=== PATIENT | male | born 1960 | race Caucasian/White ===

== ENCOUNTER → 2018-01-13 08:34 | Outpatient (CLI) | payer MEDICARE, SELFPAY ==
--- NOTE | 2018-01-13 08:45 | RAD_ITS ---
STUDY: ESOPHAGRAM DOUBLE AIR BARIUM CONTRAST STUDY REASON FOR EXAM: Male, 57 years old. Vomiting and upper chest pain with sensation of food stuck in chest. Pills stuck in throat. Acid reflux. Sore throat. RADIATION DOSAGE (If Supplied By Facility): 286.02 mGy FLUOROSCOPY TIME (if supplied): (3:03) minutes/seconds TECHNIQUE: Bowel air-barium contrast study was initiated with small swallow of thick barium which the patient tolerated well and showed no obstruction. Patient then ingested water and insufflation crystals but then vomited which limited the study. Patient could only handle small amount of thick barium in the upright position and small amount of thin barium via straw in the ALLAN prone position also limiting study. Lateral upright cine imaging was performed with thin barium and separately with barium 18 mm tablet. COMPARISON: None available. FINDINGS: Suboptimal study as patient vomited after ingesting insufflation crystals and water, best imaging possible under the circumstances. No crystal aspiration below the vocal cords noted. No complete obstruction or extravasation of contrast seen. No marked narrowing of the distal esophagus is seen. No mucosal lesion such as ulcer or polyp seen. No finding of extrinsic constricting annular lesion. However, severe esophageal dysmotility is noted and hazy ill-defined distal esophageal lateral greater than medial margins suggests esophagitis. Also with barium tablet cine swallowing, the barium tablet was seen in the upper thoracic proximal esophagus for approximately 1 minute before passing into the stomach. Anterior approach metal plate/screws transfix lower cervical spine. RAD/Esophagus Only IMPRESSION: Fairly severe esophageal dysmotility without tertiary waves. Mild distal esophagitis suggested. Clinical correlation recommended. Limited study due to vomiting initially with the insufflation crystals and water ingested by patient. No significant stricture, obstruction, diverticulum, extravasation of barium or extrinsic constricting annular lesion identified with above limitation. No mucosal lesion such as ulcer or polyp identified with above limitations. Barium 18 mm tablet delayed passage was seen in the upper thoracic proximal esophagus indicating esophageal dysmotility corresponding to some of the patient's symptoms. Electronically Signed: Amol Moran, at 14:44 EDT Tel , Service support ,
== END ==
PROVIDERS: Family Provider Family Medicine; PCP Family Medicine; Visit Provider Otolaryngology
DX: R13.10 Dysphagia, unspecified (principal)
CPT/HCPCS: 74220

== ENCOUNTER → 2018-01-18 13:20 | Outpatient (CLI) | payer MEDICARE, SELFPAY ==
--- NOTE | 2018-01-18 13:45 | SP.MBSS_ITS ---
PRIMARY / SECONDARY DIAGNOSIS: dysphagia (R13.10) REFERRING PHYSICIAN: Dr. Beto Gastelum MD CURRENT DIET: regular textures, thin liquids DENTITION: WFL MENTAL STATUS: WNL RESPIRATORY STATUS: O2 via room air PREVIOUS MODIFIED BARIUM SWALLOW STUDY: none REASON FOR REFERRAL: Patient is a 57 year old male referred for a modified barium swallow (MBS) study to objectively assess the Patients oropharyngeal swallow function under fluoroscopy secondary to reported difficulty swallowing that has persisted for approximately 4 years, with recent severe esophageal dysmotility identified under fluoroscopy prior to episode of emesis. Patient details intermittent coughing during PO intake, with the Patient presenting with harsh, dysphonic vocal quality with intermittent diplophonia. Patient reports poor vocal quality has persisted following 2013 anterior cervical fusion, with slight gradual increase. Patient reports biopsy of non-specified vocal fold growth planned for 01/19/2018. ADDITIONAL OBJECTIVE ASSESSMENT RESULTS: 01/13/2018 barium swallow study revealed fairly severe esophageal dysmotility without tertiary waves; mild distal esophagitis suggested; 18 mm tablet delayed passage was seen in the upper thoracic proximal esophagus indicating esophageal dysmotility corresponding to some of the patient's symptoms; study limited due to due to vomiting initially with the insufflation crystals and water ingested. MEDICAL HISTORY: Status post anterior cervical fusion, lymphoma status post surgical removal, gastroesophageal reflux disease, arthritis, hypertension, hyperlipidemia, chronic cough, chronic shortness of breath, daytime fatigue, alcohol abuse, prior smoker. STUDY FINDINGS: Patient participated in a Modified Barium Swallow (MBS) study on 01/18/2018. Dr. Alegria was the radiologist present for this evaluation. This study was recorded in the lateral view and images were sent to PACs for storage. The following consistencies were presented to this patient for analysis of oropharyngeal swallow function: thin liquids, nectar thickened liquids, pudding , and a regular textured, Adalgisa Doone cookie. Results of the MBS are as follows: PENETRATION / ASPIRATION SCALE (MARIA): 1 = does not enter airway 2 = enters airway/above vocal folds/ejected 3 = enters airway/above vocal folds/not ejected 4 = enters airway/contacts vocal folds/ejected 5 = enters airway/contacts vocal folds/not ejected 6 = enters airway/below vocal folds/ejected 7 = enters airway/below vocal folds/not ejected despite effort 8 = enters airway/below vocal folds/no effort VIDEOFLOROSCOPIC SCALE SCORE (MARIA): Grade I = aspiration of material that has penetrated into the laryngeal vestibule, intact cough reflex Grade II = aspiration < 10 % of the bolus, intact cough reflex Grade III = aspiration of < 10 % of the bolus, reduced cough reflex or aspiration of > 10 % of the bolus, intact cough reflex Grade IV = aspiration of > 10 % of the bolus, reduced cough reflex PENETRATION / ASPIRATION SCALE (SCORE) WITH VIDEOFLOROSCOPIC SCALE SCORE: Thin liquid - 5 mL tsp.: 6 - Grade III Thin liquids via cup (single sip): 3 Thin liquids via cup (single sip): 3 Thin liquids via cup (single sip): 1 Thin liquids via cup (sequential swallows): 3 Thin liquids via straw (single sip): 3 Thin liquids via straw (sequential swallows): 3 Thin liquids via cup (chin tuck): 1 Thin liquids via cup (chin tuck): 1 Thin liquids via cup (chin tuck): 1 Lamoni thickened liquids via cup (single sip): 1 Lamoni thickened liquids via cup (single sip): 1 Lamoni thickened liquids via cup (single sip): 1 Pudding via spoon: 1 Regular textured cookie: 1 Thin liquids via cup (chin tuck): 1 IMPRESSION: DIAGNOSIS: mild to moderate pharyngeal dysphagia (R13.13) with abnormal esophageal findings ORAL PHASE CHARACTERIZED BY: LABIAL SEAL: no labial escape TONGUE CONTROL DURING BOLUS MANIPULATION: cohesive bolus between tongue to palatal seal BOLUS PREPARATION / MASTICATION: timely and efficient chewing and mashing BOLUS TRANSPORT / LINGUAL MOTION: brisk tongue motion ORAL RESIDUE: trace residue lining oral structures PHARYNGEAL PHASE CHARACTERIZED BY: INITIATION OF PHARYNGEAL SWALLOW: bolus head at posterior laryngeal surface of epiglottis at first hyoid excursion SOFT PALATE ELEVATION: no bolus between soft palate and pharyngeal wall LARYNGEAL ELEVATION: partial superior movement of thyroid cartilage/partial approximation of arytenoids cartilage to epiglottic petiole ANTERIOR HYOID EXCURSION: intermittent partial anterior movement EPIGLOTTIC MOVEMENT: complete epiglottic inversion LARYNGEAL VESTIBULE CLOSURE AT HEIGHT OF SWALLOW: incomplete laryngeal vestibule closure with narrow column of air/contrast in laryngeal vestibule PHARYNGEAL STRIPPING WAVE: pharyngeal stripping wave present / diminished PHARYNGOESOPHAGEAL SEGMENT OPENING: partial distension and partial duration; partial obstruction of flow TONGUE BASE RETRACTION: trace column of contrast between tongue base and posterior pharyngeal wall PHARYNGEAL RESIDUE: collection of residue within or on pharyngeal structures ESOPHAGEAL PHASE CHARACTERIZED BY: ESOPHAGEAL BOLUS CLEARANCE IN THE UPRIGHT POSITION: brief esophageal retention of solid textures upper thoracic proximal esophagus with remainder cleared with liquid wash; prior severe esophageal dysmotility appreciated under fluoroscopy. EFFECTS OF TREATMENT STRATEGIES ATTEMPTED: Chin tuck posture = effective Cough and reswallow = effective Liquid chaser = moderately effective DIET TEXTURE RECOMMENDATIONS: Will recommend a regular textured, thin liquid diet. COMPENSATORY STRATEGIES RECOMMENDED: Chin tuck with thin liquids, reduced bolus volume, reduced rate of intake, liquid chaser, seated upright at 90 degrees during PO intake, remain upright for 30-60 minutes post meal (GERD precaution), medications with purees (crushed if able) INTERPRETATION OF RESULTS: Patient presents with mild to moderate pharyngeal dysphagia (R13.13) likely associated with previous anterior cervical fusion with abnormal esophageal findings similar to (albeit less intense) prior findings under fluoroscopy. Pharyngeal phase marked by impaired pharyngeal swallow onset timing resulting in suboptimal bolus location upon swallow onset with pre-prandial penetration and brief drop below the vocal folds without sensation (silent aspiration by definition) occurring during the initial trial (trial very atypical in comparison to preceding trials); reduced closure of the airway during deglutition attributed to reduced laryngeal elevation resulting in poor laryngeal vestibule closure / pressure and insufficient laryngeal vestibule pressure generated to expel penetrated material; mild pharyngeal dysmotility primarily attributed to reduced posterior pharyngeal stripping wave action pharyngeal retention within the valleculae. Esophageal phase marked by brief esophageal retention of solid textures upper thoracic proximal esophagus with remainder cleared with liquid wash; prior severe esophageal dysmotility appreciated under fluoroscopy. All deficits ameliorated with execution of the chin tuck posture with bolus volume adjustments. Sufficient volitional cough generated to expel penetrated material. Cervical fusion plate present extending from C5 to C7. RECOMMENDATIONS: Patient able to comprehend and express recommended intake precautions detailed above with sufficient detail to suggest high likelihood of compliance. Provided brief overview of signs and symptoms of aspiration, with recommendations for the Patient to further discuss symptoms with PCP. No further skilled speech- language services warranted at this time targeting dysphagia. ADDITIONAL COMMENTS/RECOMMENDATIONS: Results and recommendations were discussed with the Patient immediately following MBS completion, with the Patient verbalizing understanding and agreement with all recommendations and education provided. IMAGE COUNT: [id number] G-CODES: SWALLOWING G8996 Current Status: CI SWALLOWING G8997 Goal Status: CI SWALLOWING G8998 Discharge Status: CI Chi Friedman M.A., CCC-EMPLOYMENT ADVISOR [facility] Speech-Language Pathology Department [email or web address]
== END ==
PROVIDERS: Family Provider Family Medicine; PCP Family Medicine; Visit Provider Otolaryngology
DX: R13.10 Dysphagia, unspecified (principal)
CPT/HCPCS: 74230; 92611

== ENCOUNTER 2018-01-19 11:44 | Day surgery (SDC) | payer MEDICARE, SELFPAY ==
[2018-01-14 16:19] LABS: Hematocrit 42.3 % (40-54); Hemoglobin 14.3 g/dl (13.0-16.5); Mean Corp Hgb Conc 33.8 g/gl (32-36); Mean Corpuscular Hgb 30.6 pg (27.0-32.0); Mean Corpuscular Volume 90.6 fL (80-94); Mean Platelet Vol. 10.6 fl (6.2-12.0); Platelet Count 287 K/mm3 (150-450); RBC Distribution Width CV 14.3 % (11.6-14.6); RBC Distribution Width SD 47.2 fl (35.1-43.9); Red Blood Count 4.67 M/mm3 (4.6-6.2); White Blood Count 12.9 K/mm3 (4.4-11.0)
[2018-01-14 16:20] LABS: Scan Indicated on CBC? Y/N NO
[2018-01-14 16:29] LABS: BUN 18 mg/dL (7-18); EST Glomerular Filtration Rate 60 mL/min (>60); Glucose 96 mg/dL (74-106)
[2018-01-14 16:30] LABS: Anion Gap 5 (5-15); BUN/Creat Ratio 13.8 RATIO (10-20); Calcium,Total 8.8 mg/dL (8.5-10.1); Chloride 108 mmol/L (98-107); Est Glom Filt Rate - Afr Amer 73 mL/min (>60); Potassium 4.1 mmol/L (3.5-5.1); Sodium Level 141 mmol/L (136-145)
--- NOTE | 2018-01-19 | IMM_PTH ---
PATIENT: NGHIA CRABTREE [place] [facility] [place] [facility] [id number] AGE/SX: 57/M ROOM: RE01/19/[address]: Dr. Beto Gastelum MD : 1960 BED: DIS: 01/19/2018 SPEC #: [id number] RECD: 01/21/18 12:48 STATUS: KITTY RESangita #: [id number] SOLITARIO: 01/19/18 00:[address]: Beto Gastelum DEPT: IMMUNOHISTOCHEMISTRY RECD BY: Saadia Vargas ENTERED: 01/21/18 12:49 SP TYPE: IMMUNO OTHR DR: Dr. Carlos Mathur DO Tissues: C - Nasopharynx, NOS Procedures: BCL-2 (add) CD20 (add) CD45 (add) CD5 (add) CD79A (add) CD3 (initial) PHYSICIAN & INSTITUTION [place] [id number] SPECIMEN INFORMATION: Tissue Source: C ? Nasopharyngeal mass Clinical Info: Laryngeal mass Specimen Number: [id number] CPT code: 82840, 48888 x5 METHODOLOGY: Deparaffinized sections of prefer/formalin-fixed tissue or PAP/DQ stained slides are incubated with monoclonal/polyclonal antibodies/oligonucleotide probes. Localization is made via biotin free immunoperoxidase method. Appropriate controls are performed and reacted as expected. Results on target cell population are indicated in the following table: RESULTS: ANTIBODY / CLONE RESULT Block C CD3 (PS1) positive CD5 (SP10) positive CD20 (L26) positive CD45 (RP2/18) positive CD79a (11E3) positive BCL-2 (bcl-2/100/D5) negative, in germinal center These tests were developed and their performance characteristics determined by [facility]. They may not have been cleared or approved by the U.S. Food and Drug Administration. The FDA has determined that such clearance or approval is not necessary. INTERPRETATION: C. Nasopharyngeal mass: Fragments of respiratory mucosa with subepithelial lymphoid tissue, polytypic in nature, favor benign. SJ:michelle 01/22/18 Comment: Lymphoid tissue may represent tonsillar tissue.
[2018-01-19 12:14] VITALS: BP 120/78; PULSE 66; RESP 16; TEMP 36.7; O2SAT 98; BMI 31.5
--- NOTE | 2018-01-19 13:25 | VOCOB_PTH ---
PATIENT: NGHIA CRABTREE LOC: [facility] – [place] U#:[id number] AGE/SX: 57/M ROOM: RE01/19/[address]: Dr. Beto Gastelum MD : 1960 BED: DIS: 01/19/2018 SPEC #: [id number] RECD: 01/20/18 09:08 STATUS: KITTY SHOLA #: [id number] SOLITARIO: 01/19/18 13:[address]: Beto Gastelum DEPT: SURGICAL PATHOLOGY RECD BY: Anival Parnell ENTERED: 01/20/18 10:06 SP TYPE: VOCAL CORD OTHR DR: Dr. Carlos Mathur DO Tissues: A - Vocal cord, NOS B - Vocal cord, NOS C - Nasopharynx, NOS Procedures: Special Stain Group I Surgery Specimen Level IV GMS Stain (control) HEADER OPERATION: Diagnostic microlaryngoscopy with biopsy PRE-OP DIAGNOSIS: Laryngeal mass TISSUE SUBMITTED: A. Superior left vocal cord mass, B. Left vocal cord nodule, C. Nasopharyngeal mass MICROSCOPIC DIAGNOSIS A. Superior left vocal cord mass, biopsy: A fragment of squamous mucosa with mild chronic inflammation and hyperkeratosis. Superficial bacterial colonization. Special stain for fungi is positive for organisms (yeast and pseudohyphae) consistent with yunior species in the superficial layer of epithelium; matched control is appropriate. Negative for malignancy. B. Left vocal cord nodule, biopsy: Fragments of squamous and respiratory mucosa with chronic inflammation and hyperkeratosis. Special stain for fungi is positive for rare organisms (yeast and pseudohyphae) consistent with yunior species in the superficial layer of epithelium; matched control is appropriate. Negative for malignancy. C. Nasopharyngeal mass, biopsy: Fragments of respiratory mucosal tissue with subepithelial lymphoid tissue with reactive changes, may represent tonsillar tissue. See comment. SJ:michelle 01/21/18 COMMENT C. Immunohistochemistry ([id number]) shows lymphoid tissue to be polytypic in nature, favor benign. Clinical correlation and appropriate follow up are necessary. Case has been reviewed in consultation with Dr. Dee who concurs with the above diagnosis. IDC:AM MICROSCOPIC DESCRIPTION Slides are reviewed. GROSS DESCRIPTION A - Received in fixative is one container labeled with the patient's name and designated superior left vocal cord mass. The specimen consists of multiple irregular fragments of light kwok soft tissue that in aggregate measure 0.3 x 0.2 x <0.1 cm. The specimen is totally submitted in one cassette. B - Received in fixative is one container labeled with the patient's name and designated left vocal cord nodule. The specimen consists of two irregular fragments of light kwok soft tissue that in aggregate measure 0.4 x 0.2 x <0.1 cm. The specimen is totally submitted in one cassette. C - Received in fixative is one container labeled with the patient's name and designated nasopharyngeal mass. The specimen consists of two irregular fragments of light kwok soft tissue that in aggregate measure 0.6 x 0.4 x 0.1 cm. The specimen is totally submitted in one cassette. / AM:michelle 01/20/18 TC:3 CPT: 69780 x3, 51531 x2
--- NOTE | 2018-01-19 14:05 | PCM.DC ---
You will use the following diet at home:: No restrictions Discharge Activity: Return to Normal Activity Call your doctor if your incision/area has: Increased Pain/ Swelling Allergies/Adverse Reactions: Allergies No Known Allergies Allergy (Verified 03/24/13 12:11) Medications to take at Discharge Lisinopril [Zestril] 10 mg PO DAILY 03/24/13 Aspirin [Aspirin, Baby] 81 mg PO DAILY@0800 08/22/14 Albuterol Inhaler [Ventolin Hfa (SP)] 1 - 2 puff INHALATION Q4H PRN PRN 01/12/18 Amlodipine [Norvasc] 10 mg PO DAILY 01/12/18 B Complex with Vitamin C [Vitamin B-Complex with Vit C] 1 each PO DAILY 01/12/18 Cholecalciferol (Vitamin D3) [Vitamin D3] 2,000 unit PO DAILY 01/12/18 Esomeprazole Mag Trihydrate [Nexium] 80 mg PO DAILY 01/12/18 Fenofibrate 135 mg PO DAILY 01/12/18 Oxycodone HCl/Acetaminophen [Percocet 5/325] 1 tablet PO Q6H PRN PRN 01/12/18 Rosuvastatin Calcium [Crestor] 40 mg PO QHS 01/12/18 Primary Care Physician: Carlos Mathur DO [Primary Care Provider] - Test Results: Test results from this visit will be discussed in further detail at your follow-up appointment, if applicable. Please Follow Up With: Arya Gastelum MD When: 1 week
--- NOTE | 2018-01-19 14:05 | PCM.OPRPT ---
Problem List (1) Vocal cord anomaly Status: Chronic Report of Operation Date of Procedure: 01/19/18 Pre-Operative Diagnosis: 1. vocal cord nodule, right and left. 2. nasopharyngeal mass Post-Operative Diagnosis: 1. vocal cord nodules, right and left. 2. nasopharyngeal mass Surgery/Procedure Performed:: 1. diagnostic laryngoscopy with biopsy and left vocal cord stripping, use of the operative telescope. 2. nasopharyngeal biopsy, endoscopic Type of Anesthesia:: General Description of Procedure: on the day of the procedure, after appropriate informed consent was obtained, the patient was brought to the operating room and placed in supine position on the operating table. he was placed under general endotracheal anesthesia by the anesthesiologist. the endotracheal tube was secured, the eyes were taped. the table was rotated 90 degrees toward the surgeon. a mouth guard was placed and a pily laryngoscope was placed into the oral cavity with cares not to damage the lips or gums; it was suspended from the mcdermott. the zero degree scope was used to evaluate the larynx. a left sided superior mid-cord leukoplakic reaction was biopsied. this was confined to the superior left cord and was 8mm by 2mm. a stripping was performed and the entire visible lesion was removed. additionally, there was a left mid cord nodule on the underside portion of the cord that appeared benign. this was medialized with a grasping forceps and microlaryngoscopic scissors were used to excise it. a moderate amount of fluid was expressed as this was cystic. a zero degree scope was placed into the nasopharynx. a large adenoid pad was seen and biopsied. pledgets were placed bilaterally in the nasal cavity. the patient was awoken from anesthesia and transferred to the PACU in stable condition.
[2018-01-19] MEDS: Oxymetazoline 0.05% 1 SPRAY SPRAY.BTL 15 SPRAY (14:30)
[2018-01-19 15:10] VITALS: BP 120/78; BP 129/57; PULSE 79; RESP 18; TEMP 36.1; O2SAT 97
[2018-01-19 15:15] VITALS: BP 120/78; BP 141/77; PULSE 71; RESP 18; O2SAT 96
[2018-01-19 15:30] VITALS: BP 120/78; BP 129/72; PULSE 65; RESP 18; O2SAT 95
[2018-01-19 15:46] VITALS: BP 120/78; BP 137/89; PULSE 65; RESP 18; TEMP 36.2; O2SAT 97
[2018-01-19 16:37] VITALS: BP 120/78; BP 131/73; PULSE 66; RESP 16; O2SAT 98
== END 2018-01-19 16:38 | disposition home or self-care (01) ==
LOC: SDC 11:44 → AC 11:45
PROVIDERS: Family Provider Family Medicine; PCP Family Medicine; Visit Provider Otolaryngology
PROC: 0CJS8ZZ Inspection of Larynx, Via Natural or Artificial Opening Endoscopic (ICD-10-PCS; CPT 31575; principal; 2018-01-19 13:15)
DX: J38.2 Nodules of vocal cords (principal); R22.1 Localized swelling, mass and lump, neck; E78.00 Pure hypercholesterolemia, unspecified; K21.9 Gastro-esophageal reflux disease without esophagitis; Z79.899 Other long term (current) drug therapy; Z79.82 Long term (current) use of aspirin; I10 Essential (primary) hypertension; Z87.891 Personal history of nicotine dependence
CPT/HCPCS: 31541; 36415; 80048; 85027; 88305; 88312; 88341; 88342; 93005; J7120; J2405

== ENCOUNTER → 2019-12-29 15:08 | Outpatient (CLI) | payer MEDICARE, MEDICAID, SELFPAY ==
[2019-12-29 17:03] LABS: Absolute Lymphocyte Count 2.98 X10^3/uL (0.83-4.51); Absolute Neutrophil Count 7.6 X10^3/uL (2.0-7.7); Basophil# 0.07 X10^3/uL; Basophil% 0.6 % (0-1); Eosinophil# 0.29 X10^3/uL; Eosinophils% 2.4 % (0-5); Hematocrit 45.7 % (40-54); Hemoglobin 15.1 g/dL (13.0-16.5); Lymphocyte # 2.98 X10^3/ul (4.0); Lymphocyte % 24.9 % (19-41); Mean Corpuscular Hgb 29.7 pg (27.0-32.0); Monocyte# 0.99 X10^3/uL; Monocyte% 8.3 % (0-10); NRBC Flagged by Analyzer 0 % (0-5); Neutrophil # 7.57 X10^3/uL (2.7-7.7); Neutrophil % 63.2 % (47-70); Platelet Count 315 K/mm3 (150-450); RBC Distribution Width CV 14.4 % (11.6-14.6); RBC Distribution Width SD 47.5 fl (35.1-43.9); Red Blood Count 5.08 M/mm3 (4.6-6.2)
[2019-12-29 17:06] LABS: Prothrombin Time (Protime)PT. 12.3 SECONDS (11.7-14.9)
== END ==
PROVIDERS: PCP Family Medicine; Visit Provider Family Medicine
DX: R23.3 Spontaneous ecchymoses (principal)
CPT/HCPCS: 36415; 85025; 85610

== ENCOUNTER → 2020-06-07 12:24 | Outpatient (CLI) | payer MEDICARE, MEDICAID, SELFPAY ==
--- NOTE | 2020-06-07 12:41 | MRI_ITS ---
STUDY: MRI LUMBAR SPINE WITHOUT CONTRAST REASON FOR EXAM: Male, 59 years old. pt c/o low back pain x many years, into legs bilaterally with numbness and tingling in both feet TECHNIQUE: Standardized fat and water weighted pulse sequences were obtained in the sagittal and axial planes. COMPARISON: 02/05/2016 FINDINGS: T12-L1: Normal endplates. Normal disc height, desiccation and normal morphology. Normal bilateral facet joints. Normal central canal and bilateral lateral recesses. Normal bilateral intervertebral neural foramina. Normal lumbar lordosis. There is severe levo scoliosis. Normal conus medullaris that terminates at T12-L1 L1-2: Normal endplates. Normal disc height, desiccation and minimal annular bulge.. Normal bilateral facet joints. Normal central canal and bilateral lateral recesses. Normal bilateral intervertebral neural foramina. L2-3: Grade 1 retrolisthesis Normal endplates. Normal disc height, desiccation and mild bulging disc osteophyte complex.. Mild facet arthropathy on the right.. Normal central canal and bilateral lateral recesses. Mild left neuroforaminal stenosis and moderate narrowing on the right. L3-4: Narrowed disc space with degenerative endplate changes. Desiccation of the disc and minor bulging annulus and small right posterolateral/foraminal disc/osteophyte protrusion.. Bilateral facet arthropathy more pronounced on the right. Moderate right lateral recess stenosis and severe neuroforaminal stenosis. Moderate left neuroforaminal encroachment L4-5: Narrowed disc space and desiccation of the disc and minor bulging annulus. Facet arthropathy greater on the left. Normal central canal. Moderate to severe bilateral recess stenosis. L5-S1: Normal endplates. Normal disc height, desiccation and minor annular bulge. Facet arthropathy and thickening of ligamenta flava greater on the right.. Normal central canal and bilateral lateral recesses. Moderate right neuroforaminal stenosis.. Normal visualized sacral ala. Normal visualized paraspinous soft tissue structures. There has been interval progression of the degenerative changes since prior exam. MRI/Spine Lumbar (Routine) IMPRESSION: Scoliosis and degenerative changes. Multilevel spinal stenosis secondary to disc disease facet arthropathy most severe at L3-4 and L4-5. Findings as above Electronically Signed: Live Fish MD at 19:18 EST , Service support ,
== END ==
PROVIDERS: PCP Family Medicine; Referring Provider Family Medicine; Visit Provider Family Medicine
DX: M54.17 Radiculopathy, lumbosacral region (principal)
CPT/HCPCS: 72148

== ENCOUNTER → 2023-02-05 | Outpatient (CLI) | payer MEDICARE, MEDICAID, SELFPAY ==
[2023-02-05 18:05] LABS: Amphetamine Urine VISTA NEGATIVE (<1000 ng/mL); Barbiturate Urine VISTA NEGATIVE (< 200 ng/mL); Benzodiazepine Urine VISTA NEGATIVE (< 200 ng/mL); Cocaine Urine VISTA NEGATIVE (< 300 ng/mL); Ecstacy Urine VISTA NEGATIVE (< 500 ng/mL); Methadone Urine VISTA NEGATIVE (< 300 ng/mL); PCP Urine VISTA NEGATIVE (< 25 ng/mL); THC Urine VISTA POSITIVE (< 50 ng/mL); Vista UDS pH Range 6
[2023-02-05 18:08] LABS: PSA,Total - Annual Screen 1.15 ng/mL (0.00-4.00)
[2023-02-05 18:11] LABS: OXY Internal Control LINE = VALID (VALID); Oxycodone Drug Screen Positive (<100 ng/mL)
[2023-02-05 18:12] LABS: Color, Urine Yellow (Yellow); Glucose, Dipstick 1000 mg/dl (Normal); Ketone-Dipstick Negative (Negative); Leukocyte Esterase-Dipstick Negative /ul (Negative); Nitrite-Dipstick Negative (Negative); Occult Blood-Urine Negative /ul (Negative); Protein-Dipstick Negative (Negative); Urine Bilirubin Dipstick Negative (Negative); Urine Clarity Clear (Clear); Urine Urobilinogen Normal (Normal); Urine pH 6.5 (5.0 - 8.0)
[2023-02-07 07:08] LABS: V-Zoster IgG (Immunity) 604 index (Immune >165)
== END | disposition home or self-care (01) ==
LOC: BFHLAB 15:36
PROVIDERS: PCP Family Medicine; Referring Provider Family Medicine; Visit Provider Family Medicine
DX: Z12.5 Encounter for screening for malignant neoplasm of prostate (principal); R30.0 Dysuria; Z79.899 Other long term (current) drug therapy; Z28.39 Other underimmunization status
CPT/HCPCS: 36415; 80307; 80365; 81002; 84153; 86787; G0103; G0480

== ENCOUNTER → 2023-09-08 | Outpatient (CLI) | payer MEDICARE, MEDICAID, SELFPAY ==
[2023-09-08 17:36] LABS: Color, Urine Yellow (Yellow); Glucose, Dipstick 1000 mg/dl (Normal); Ketone-Dipstick Negative (Negative); Leukocyte Esterase-Dipstick Negative /ul (Negative); Nitrite-Dipstick Negative (Negative); Occult Blood-Urine Negative /ul (Negative); Protein-Dipstick Negative (Negative); Urine Bilirubin Dipstick Negative (Negative); Urine Clarity Clear (Clear); Urine Urobilinogen Normal (Normal); Urine pH 6.5 (5.0 - 8.0)
[2023-09-08 17:57] LABS: Amphetamine Urine VISTA NEGATIVE (<1000 ng/mL); Barbiturate Urine VISTA NEGATIVE (< 200 ng/mL); Benzodiazepine Urine VISTA NEGATIVE (< 200 ng/mL); Cocaine Urine VISTA NEGATIVE (< 300 ng/mL); Ecstacy Urine VISTA NEGATIVE (< 500 ng/mL); Methadone Urine VISTA NEGATIVE (< 300 ng/mL); PCP Urine VISTA NEGATIVE (< 25 ng/mL); THC Urine VISTA POSITIVE (< 50 ng/mL); Vista UDS pH Range 6
[2023-09-08 17:59] LABS: BNP,B-Type NATRIURETIC PEPTIDE 80.3 pg/mL (0-100)
[2023-09-08 18:01] LABS: OXY Internal Control LINE = VALID (VALID); Oxycodone Drug Screen Positive (<100 ng/mL)
[2023-09-08 18:20] LABS: AST(SGOT) 19 U/L (15-37); Alanine Aminotransfer ALT/SGPT 33 U/L (16-61); Albumin, Serum 3.5 g/dL (3.2-5.0); Alkaline Phosphatase 78 U/L (45-117); Anion Gap 6 (5-15); BUN 14 mg/dL (7-18); BUN/Creat Ratio 14.1 RATIO (10-20); Calcium,Total 8.8 mg/dL (8.5-10.1); Chloride 108 mmol/L (98-107); EST Glomerular Filtration Rate 80 mL/min (>60); Est Glom Filt Rate - Afr Amer 97 mL/min (>60); Globulin 3.6 g/dL (2.2-4.2); Glucose 110 mg/dL (74-106); Potassium 4.4 mmol/L (3.5-5.1); Protein, Total 7.1 g/dL (6.4-8.2); Sodium Level 139 mmol/L (136-145); Thyroid Stim Hormone (TSH) 0.89 uIU/mL (0.358-3.74)
== END | disposition home or self-care (01) ==
LOC: BFHLAB 14:40
PROVIDERS: PCP Family Medicine; Visit Provider Family Medicine
DX: I10 Essential (primary) hypertension (principal); R06.00 Dyspnea, unspecified; Z79.899 Other long term (current) drug therapy; R60.0 Localized edema
CPT/HCPCS: 36415; 80053; 80307; 80365; 81002; 83880; 84443; G0480

== ENCOUNTER → 2024-06-14 | Outpatient (CLI) | payer MEDICARE, MEDICAID, SELFPAY ==
[2024-06-14 18:27] LABS: Color, Urine Straw (Yellow); Glucose, Dipstick 1000 mg/dl (Normal); Ketone-Dipstick Negative (Negative); Leukocyte Esterase-Dipstick Negative /ul (Negative); Nitrite-Dipstick Negative (Negative); Occult Blood-Urine 10 /ul (Negative); Protein-Dipstick 15 mg/dl (Negative); Specific Gravity, Urine 1.005 (1.002-1.030); Urine Bilirubin Dipstick Negative (Negative); Urine Clarity Clear (Clear); Urine Urobilinogen Normal (Normal)
[2024-06-14 18:32] LABS: OXY Internal Control LINE = VALID (VALID); Oxycodone Drug Screen Positive (<100 ng/mL)
[2024-06-14 18:46] LABS: Amphetamine Urine VISTA NEGATIVE (<1000 ng/mL); Barbiturate Urine VISTA NEGATIVE (< 200 ng/mL); Benzodiazepine Urine VISTA NEGATIVE (< 200 ng/mL); Cocaine Urine VISTA NEGATIVE (< 300 ng/mL); Ecstacy Urine VISTA NEGATIVE (< 500 ng/mL); Methadone Urine VISTA NEGATIVE (< 300 ng/mL); PCP Urine VISTA NEGATIVE (< 25 ng/mL); THC Urine VISTA POSITIVE (< 50 ng/mL); Vista UDS pH Range 6
[2024-06-14 18:57] LABS: PSA,Total - Annual Screen 1.27 ng/mL (0.00-4.00)
== END | disposition home or self-care (01) ==
LOC: BFHLAB 14:00
PROVIDERS: PCP Family Medicine; Referring Provider Family Medicine; Visit Provider Family Medicine
DX: Z12.5 Encounter for screening for malignant neoplasm of prostate (principal); R35.0 Frequency of micturition; Z79.899 Other long term (current) drug therapy
CPT/HCPCS: 36415; 80307; 80365; 81002; 84153; G0103; G0480

== ENCOUNTER → 2024-06-29 | Outpatient (CLI) | payer MEDICARE, MEDICAID, SELFPAY ==
[2024-06-29 15:35] LABS: Anion Gap 8 (5-15); BUN 16 mg/dL (7-18); BUN/Creat Ratio 13.6 RATIO (10-20); Calcium,Total 9.2 mg/dL (8.5-10.1); Chloride 107 mmol/L (98-107); Creatinine, Serum 1.18 mg/dL (0.70-1.30); EST Glomerular Filtration Rate 66 mL/min (>60); Est Glom Filt Rate - Afr Amer 80 mL/min (>60); Glucose 120 mg/dL (74-106); Potassium 3.9 mmol/L (3.5-5.1); Sodium Level 137 mmol/L (136-145)
== END | disposition home or self-care (01) ==
LOC: BFHLAB 11:27
PROVIDERS: PCP Family Medicine; Visit Provider Family Medicine
DX: R79.89 Other specified abnormal findings of blood chemistry (principal)
CPT/HCPCS: 36415; 80048

== ENCOUNTER → 2024-12-22 | Outpatient (CLI) | payer MEDICARE, MEDICAID, SELFPAY ==
[2024-12-22 17:03] LABS: Barbiturate Urine NEGATIVE (< 200 ng/mL); Benzodiazepine Urine NEGATIVE (< 200 ng/mL); PCP Urine NEGATIVE (< 25 ng/mL); THC Urine PRESUMPTIVE POSITIVE (< 50 ng/mL)
== END | disposition home or self-care (01) ==
LOC: LABSPEC 13:29
PROVIDERS: PCP Family Medicine; Visit Provider Family Medicine
DX: Z79.899 Other long term (current) drug therapy (principal)
CPT/HCPCS: 80307

== ENCOUNTER → 2024-12-28 | Outpatient (CLI) | payer MEDICARE, MEDICAID, SELFPAY ==
--- NOTE | 2024-12-28 14:39 | VDLE_ITS ---
Reason For Study Reason For Study: Right leg pain RIGHT LEFT GSV is normal. CFV is compressible, spontaneous, phasic, competent, CFV is compressible, spontaneous, phasic, competent and demonstrates normal augmentation. and demonstrates normal augmentation. FV is compressible, spontaneous, phasic, competent and demonstrates normal augmentation. POP V is compressible, spontaneous, phasic, competent and demonstrates normal augmentation. T/P Trunk is compressible. PTV is compressible. RT PerV is compressible. Procedure This is a venous duplex using B-mode, color flow and spectral Doppler. Exam performed in department. A preliminary report was called and/or faxed to FATIMAH Funez. VL/Venous Duplex US, Unilateral Interpretation Summary Deep veins of the right lower extremity are patent and compressible segmentally . There is no evidence of right lower extremity deep vein thrombosis. The right great saphenous vein appears patent a nd compressible segmentally. Ordering Physician: Araceli Funez Referring Physician: Carlos Mathur Performed By: Myesha Pulido RVT
== END | disposition home or self-care (01) ==
LOC: CVS 14:36
PROVIDERS: PCP Family Medicine; Referring Provider Nurse Practitioner Family; Visit Provider Nurse Practitioner Family
DX: M79.89 Other specified soft tissue disorders (principal); M79.669 Pain in unspecified lower leg
CPT/HCPCS: 93971

== ENCOUNTER → 2025-01-24 | Outpatient (CLI) | payer MEDICARE, MEDICAID, SELFPAY ==
[2025-01-24 19:41] LABS: Barbiturate Urine NEGATIVE (< 200 ng/mL); Benzodiazepine Urine NEGATIVE (< 200 ng/mL); PCP Urine NEGATIVE (< 25 ng/mL); THC Urine PRESUMPTIVE POSITIVE (< 50 ng/mL)
== END | disposition home or self-care (01) ==
LOC: LABSPEC 16:41
PROVIDERS: PCP Family Medicine; Visit Provider Family Medicine
DX: Z79.899 Other long term (current) drug therapy (principal)
CPT/HCPCS: 80307